=== PATIENT | male | born 1965 | race Caucasian/White ===

== ENCOUNTER 2017-10-19 08:43 | Emergency (ER) | payer MEDICAID ==
[~2017-10-19] VITALS: Ht 170.2 cm; Wt 88.6 kg
[2017-10-19 08:55] VITALS: TEMP 97.9
[2017-10-19] MEDS ORDERED: ZESTRIL 20MG TA20 MG PO (09:08)
[2017-10-19] MEDS ORDERED: ASPIRIN 81M81 MG/TA2 PO (09:09)
[2017-10-19] MEDS ORDERED: IPRATROPIUM BROM3 M1 IH (09:09)
[2017-10-19 09:24] LABS: BASO % 0.7 % (0.0-2.0); EOS # 0.1 (0.0-0.7); EOS % 1.8 % (0-4.0); GRAN # 3.3 (1.4-6.5); HEMATOCRIT 45.5 % (42.0-52.0); LYMPH # 1.3 (1.2-3.4); LYMPH % 24.4 % (20.0-51.0); MEAN CELL VOLUME 93 fl (80.0-100.0); MEAN CORPUSCULAR HEMOGLOBIN 31 pg (27.0-31.0); MEAN CORPUSCULAR HGB CONC 33 g/dl (33.0-37.0); MEAN PLATELET VOLUME 8.7 fl (7.4-10.4); MONO # 0.7 (0.1-0.6); MONO % 12.6 % (1.7-9.3); PLATELET COUNT 246 K/mm3 (130-400); REDCELL DISTRIBUTION WIDTH-CV 14.1 % (11.5-14.5)
[2017-10-19 09:31] LABS: PROTHROMBIN TIME 11.1 SECONDS (9.7-12.8)
[2017-10-19 09:43] LABS: ALANINE AMINOTRANSFERASE 65 U/L (21-72); ALBUMIN 3.9 gm/dL (3.5-5.0); ALKALINE PHOSPHATASE 54 U/L (50-136); ANION GAP 9 mmol/L (7-16); AST,SGOT 57 U/L (15-37); BILIRUBIN,TOTAL 0.5 mg/dL (0.0-1.0); BLOOD UREA NITROGEN 13 mg/dL (9-20); CALCIUM 8.7 mg/dL (8.4-10.2); CARBON DIOXIDE 29 mmol/L (22-30); CHLORIDE 101 mmol/L (98-107); GLUCOSE 92 mg/dL (74-106); POTASSIUM 4.3 mmol/L (3.4-5.0); SODIUM 138 mmol/L (137-145); TOTAL PROTEIN 6.6 gm/dL (6.4-8.2)
[2017-10-19] MEDS ORDERED: PROAIR HFA0.09 MG/AC IH (09:51)
[2017-10-19] MEDS ORDERED: PREDNISONE20 MG PO (09:51)
[2017-10-19] MEDS ORDERED: ZITHROMAX TRI-500 MG PO (09:51)
[2017-10-19 09:54] LABS: TROPONIN-I < 0.012 ng/mL (0.000-0.034)
[2017-10-19 10:08] VITALS: BP 153/107; PULSE 77
== END 2017-10-19 10:17 | disposition home or self-care (01) ==
LOC: COL.ER 08:43
PROVIDERS: Emergency Medicine
DX: J45.909 Unspecified asthma, uncomplicated (principal); I10 Essential (primary) hypertension; F17.210 Nicotine dependence, cigarettes, uncomplicated; Z79.82 Long term (current) use of aspirin